=== PATIENT | female | born 1970 | race Caucasian/White ===

== ENCOUNTER 2016-12-29 11:11 | Emergency (ER) | payer OTHER ==
[~2016-12-29] VITALS: Ht 167.6 cm; Wt 59.0 kg
[~2016-12-29 11:11] MED LIST: BACT800T5 PO; CEPH500C3 PO; DICL75 PO; ORPH100T PO; TRAM50 PO
[2016-12-29 11:12] VITALS: BP 121/86; PULSE 78; RESP 12; TEMP 98.2; O2SAT 96
[2016-12-29 11:41] VITALS: BP 116/72; PULSE 75; RESP 18; O2SAT 100
[2016-12-29 12:29] LABS: AUTOMATED NEUTROPHIL # 5.2 TH/MM3 (1.8-7.7); BASOPHIL # 0.1 TH/MM3 (0-0.2); BASOPHIL % 0.7 % (0.0-2.0); EOSINOPHIL # 0.1 TH/MM3 (0-0.4); EOSINOPHIL % 1.3 % (0.0-4.0); HEMO FLAGS DIFF FINAL; LYMPH % 26.9 % (9.0-44.0); LYMPHOCYTE # 2.2 TH/MM3 (1.0-4.8); MEAN CELL VOLUME 89.1 FL (80.0-100.0); MEAN CORPUSCULAR HEMOGLOBIN 30.6 PG (27.0-34.0); MEAN CORPUSCULAR HGB CONC 34.4 % (32.0-36.0); MONO % 7.5 % (0.0-8.0); NEUT % 63.6 % (16.0-70.0); PLATELET COUNT 356 TH/MM3 (150-450); RED BLOOD COUNT 4.83 MIL/MM3 (4.00-5.30); WHITE BLOOD COUNT 8.1 TH/MM3 (4.0-11.0)
[2016-12-29 12:42] LABS: AMPHETAMINE, URINE NEG (NEG); BARBITURATES, URINE NEG (NEG); COCAINE, URINE NEG (NEG)
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
[2016-12-29 12:45] LABS: ALT (GPT) 17 U/L (10-53); ANION GAP 9 MEQ/L (5-15); AST (GOT) 11 U/L (15-37); BICARBONATE 26.2 MEQ/L (21.0-32.0); BLOOD UREA NITROGEN 11 MG/DL (7-18); CHLORIDE 106 MEQ/L (98-107); GLOMERULAR FILTRATION RATE 63 ML/MIN (>89); POTASSIUM 3.8 MEQ/L (3.5-5.1); SODIUM (NA) 141 MEQ/L (136-145)
[2016-12-29 12:47] LABS: ALKALINE PHOSPHATASE 127 U/L (45-117); TOTAL BILIRUBIN ADULT 0.4 MG/DL (0.2-1.0)
[2016-12-29 13:39] VITALS: BP 110/69; PULSE 74; RESP 18; TEMP 98.2; O2SAT 97
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
[2016-12-29] MEDS ORDERED: busPIRone HCL 10 MG TAB PO ONE (16:00)
[2016-12-29 17:33] VITALS: BP 105/51; PULSE 74; RESP 18; O2SAT 96
[2016-12-29] MEDS ORDERED: BUSP10TA PO (18:55)
[2016-12-29] MEDS ORDERED: ZOLO50TA PO (18:57)
== END 2016-12-29 20:24 | disposition home or self-care (01) ==
LOC: NEPD 11:11 → NEPJ 20:24
DX: F31.9 Bipolar disorder, unspecified (principal); F43.10 Post-traumatic stress disorder, unspecified; F17.210 Nicotine dependence, cigarettes, uncomplicated
CPT/HCPCS: 80053; 80307; 85025; 99284